=== PATIENT | male | born 2000 | race Caucasian/White ===

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

== ENCOUNTER 2019-05-22 07:12 | Day surgery (SDC) | payer OTHER, SELFPAY ==
[2019-05-05 08:48] VITALS: BMI 21.5
--- NOTE | 2019-05-05 08:48 | HP_ITS ---
Intake Vital Signs 05/05/19 Body Mass Index (BMI) 21.5 05/05/19 Height 5 ft 11 in 05/05/19 Weight: 168 lb 05/05/19 Body Mass Index (BMI) 23.4 05/05/19 Blood Pressure 119/70 05/05/19 Blood Pressure Location Rt brachial 05/05/19 Blood Pressure Position Sitting 05/05/19 Respiratory Rate 16 05/05/19 Pulse Rate 62 05/05/19 Pulse Source Monitor 05/05/19 Temperature 98.3 F 05/05/19 Temperature Source Oral 05/05/19 Pulse Ox 100 05/05/19 Oxygen Delivery Method room air 05/02/19 Body Mass Index (BMI) 21.5 Intake Visit Reasons: Rectal Bleeding Chief Complaint: Body aches, nausea, diarrhea [employer] Required: No Is patient in pain?: No Allergies No Known Allergies Allergy (Verified 05/05/19 08:45) [facility] Medical History Abdominal pain (Acute) Blood in stool (Acute) Fatigue (Acute) Pharyngitis (Acute) Cellulitis of left middle finger (Acute) Abrasion of left middle finger (Acute) Gastroenteritis (Acute) Bronchitis (Acute) Sinusitis (Acute) Impetigo (Acute) Fever (Acute) Confusion (Acute) Headache (Acute) Surgical History Hx of knee surgery (Acute) History of placement of ear tubes (Acute) Family History Grandfather Prostate cancer Mother Hypertension Social History (Updated 05/05/19 @ 09:12 by Jaime Perkins MD) Smoking Status: Never smoker second hand exposure: No alcohol intake: never substance use type: does not use caffeine: Yes what type of physical activity do you participate in: none frequency: does not exercise seatbelt use: always HPI HPI HPI: GUIDO EDUARDO, is a 18 M who presents to the office today for HPI HPI Surgical H&P: Yes HPI: GUIDO EDUARDO, is a 18 M who presents to the office today for Rectal bleeding. Patient has been having painless rectal bleeding since August of this year. Initially saw his primary care doctor who started him on some MiraLAX to soften his stools this however did not change the episodes of rectal bleeding. He says he has rectal bleeding every day sometimes on the stool sometimes when he wipes but is always painless. He never Has discomfort with his bowel movements. This past month he did Have an episode of some abdominal pain to the right side of his umbilicus during a bowel movement that went away once the bowel movement was completed.He has no family history of colon cancer.He is not noticing any diarrhea. ROS General General: Yes weight change and fatigue; no appetite, colon cancer, breast cancer or weakness HEENT HEENT: No difficulty swallowing, eye injury, eye surgery, swollen glands or hoarseness Endo Endocrine: No thyroid disease, diabetes mellitus, thyroid cancer, Hair loss, heat intolerance or cold intolerance Skin Skin: No rash or changing moles Musc Musculoskeletal: No back problems, arthritis, rheumatoid arthritis, gout or joint pain Cardio Cardiovascular: No murmur, pacemaker, heart disease, atrial fibrillation, high blood pressure, heart attack, heart stent, palpitations, shortness of breat with exertion or chest pain Psych Psychiatric: No depression, anxiety or hearing voices Resp Respiratory: No shortness of breath, No sleep apnea, No cough, No COPD, No asthma, No emphysema, No wheezing Gastro Gastrointestinal: No abdominal pain, No nausea or vomiting, No diarrhea, No constipation, Yes blood in stool, No acid reflux, No hemorrhoids, No ulcers, No gallbladder problem, No black,tarry stools [place] Hematologic: No blood thinners, No blood disorders, No bleeding, No anemia, No blood clots Neuro Neurologic: No system reviewed and no additional complaints, except as docu, No as per HPI, No abnormal walking, No abnormal hearing, No abnormal movements, No abnormal speech, No behavioral changes, No burning sensations, No confusion, No seizure-like activity, No unsteadiness, No dizziness, No localized weakness, No frequent falls, No headache(s), No lack of coordination, No loss of vision, No memory loss, No numbness, No other visual disturbances, No radiating pain, No restless legs, No sensory deficit, No fainting, No tingling, No tremor(s), No weakness, No other Exam Const General: no acute distress, well developed, well hydrated Orientation: oriented to person, oriented to place, oriented to time [facility] Head: normocephalic, atraumatic Ears: external ears normal Mouth: moist mucous membranes Eyes Sclera: sclerae normal Pupils: normal by confrontation Neck Neck: no lymphadenopathy noted Neck mass: No Thyroid: thyroid normal, symmetrical Chest Chest palpation & inspection: normal inspection of the chest Resp Effort & Inspection: normal respiratory effort Auscultation: clear to auscultation bilaterally Percussion: percussion normal Cardio Rate: regular rate Rhythm: regular rhythm Heart Sounds: no murmurs GI Palpation: soft, no hepatosplenomegaly, no masses, nontender Rectal Exam: other Other: Rectal exam deferred. Extrem General: normal to inspection, no clubbing, cyanosis or edema Assessment & Plan Problems 1. Rectal hemorrhage K62.5 Plan I have discussed the above with the patient. I have offered the patient colonoscopy for evaluation. I have explained the risks/benefits of the procedure and described the procedure. I have discussed the risks with the patient, including but not limited to: infection, bleeding, perforation of the GI tract requiring emergency surgery, inability to complete the procedure, injury to any internal organs, complications of anesthesia, etc. - the patient understands and agrees to proceed. I have answered all the patient's questions to the patient's satisfaction and the patient has no further questions. The patient has been given instructions for the colon cleansing preparation. Orders Orders: Colonoscopy Today Coding Level of Care Code Off vis,new,level 3 Diagnoses Rectal hemorrhage K62.5 05/05/1912 <Electronically signed by Jaime beard MD> Date _ Jaime Perkins MD I have re-examined the patient. There are no clinical changes since date of exam.
[2019-05-22] VITALS (7 sets, daily range): BP systolic 100–115; BP diastolic 39–68; PULSE 55–78; RESP 14–18; TEMP 36.3–36.5; O2SAT 93–100; BMI 23.3
[2019-05-22] MEDS: Lactated Ringers 1,000 ML 100 ML IV (07:38)
--- NOTE | 2019-05-22 08:52 | OP.ENDO_ITS ---
05/22/2019 Courtney Kunz [place] [address] [place] [address] Re : Colonoscopy procedure for Mario Dasilva Dear Dr. Kunz This procedure was performed on Wednesday, May 22, 2019. My impressions and recommendations are as follows: Impressions : - Non-bleeding internal hemorrhoids. - The examination was otherwise normal. - The examined portion of the ileum was normal. - No specimens collected. Recommendations : - Discharge patient to home. - Resume previous diet. - Continue present medications. - Repeat colonoscopy at age 49 for screening purposes. - Return to primary care physician PRN. - If patient starts to have rectal bleeding again would treat him conservatively with Anusol HC suppositories. My findings are described in the full procedure note, which is enclosed. If I can be of further assistance, please feel free to contact me at Doctor phone number(s): , Fax: [phone], Work: . Sincerely, MD Jaime Arroyo MD 05/22/2019 8:51:41 AM This report has been signed electronically.
== END 2019-05-22 09:45 | disposition home or self-care (01) ==
LOC: EN 07:15 → AC 07:16
PROVIDERS: Family Provider Family Medicine; PCP Family Medicine; Referring Provider Family Medicine; Visit Provider Surgery
PROC: 0DJD8ZZ Inspection of Lower Intestinal Tract, Via Natural or Artificial Opening Endoscopic (ICD-10-PCS; CPT 45378; principal; 2019-05-22 08:10)
DX: K64.8 Other hemorrhoids (principal)
CPT/HCPCS: 45378; J7120

== ENCOUNTER → 2021-03-11 12:57 | Outpatient (CLI) | payer OTHER, SELFPAY ==
[2020-12-21 13:18] VITALS: BMI 23.3
[2021-03-11 13:13] LABS: Absolute Lymphocyte Count 2.04 X10^3/uL (0.83-4.51); Absolute Neutrophil Count 3.7 X10^3/uL (2.0-7.7); Basophil# 0.07 X10^3/uL; Basophil% 0.6 % (0-1); Eosinophils% 42.2 % (0-5); Hematocrit 46.7 % (40-54); Hemoglobin 15.7 g/dL (13.0-16.5); Lymphocyte # 2.04 X10^3/ul (0.83-4.51); Lymphocyte % 18.4 % (19-41); Mean Corp Hgb Conc 33.6 g/dL (32-36); Mean Corpuscular Hgb 28.4 pg (27.0-32.0); Mean Corpuscular Volume 84.4 fL (80-94); Mean Platelet Vol. 11.2 fl (6.2-12.0); Monocyte# 0.62 X10^3/uL; Monocyte% 5.6 % (0-10); NRBC Flagged by Analyzer 0 % (0-5); Neutrophil # 3.65 X10^3/uL (2.7-7.7); POSITIVE DIFFERENTIAL YES; POSITIVE MORPHOLOGY YES; Platelet Count 214 K/mm3 (150-450); RBC Distribution Width CV 12.6 % (11.6-14.6); RBC Distribution Width SD 38.5 fl (35.1-43.9); Red Blood Count 5.53 M/mm3 (4.6-6.2); White Blood Count 11.1 K/mm3 (4.4-11.0)
[2021-03-11 13:26] LABS: Anion Gap 4 (5-15); BUN 11 mg/dL (7-18); BUN/Creat Ratio 11.2 RATIO (10-20); Calcium,Total 9.1 mg/dL (8.5-10.1); Chloride 108 mmol/L (98-107); Creatinine, Serum 0.98 mg/dL (0.70-1.30); EST Glomerular Filtration Rate 102 mL/min (>60); Est Glom Filt Rate - Afr Amer 123 mL/min (>60); Glucose 70 mg/dL (74-106); Potassium 3.8 mmol/L (3.5-5.1); Sodium Level 140 mmol/L (136-145)
[2021-03-11 13:41] LABS: Differential Indicated SCAN CRITERIA MET; Eosinophil# 4.67 X10^3/uL
[2021-03-11 13:42] LABS: Differential Comment SCANNED
[2021-03-12 12:47] LABS: Pathologist Review Reviewed
== END ==
PROVIDERS: PCP Family Medicine; Referring Provider Family Medicine; Visit Provider Family Medicine
DX: K92.2 Gastrointestinal hemorrhage, unspecified (principal)
CPT/HCPCS: 36415; 80048; 85025

== ENCOUNTER 2021-03-12 07:38 | Day surgery (SDC) | payer OTHER, SELFPAY ==
[2021-03-11 13:29] VITALS: BMI 25.1
[2021-03-12] VITALS (9 sets, daily range): BP systolic 97–122; BP diastolic 55–64; PULSE 54–104; RESP 16; TEMP 35.8–36.5; O2SAT 94–100; BMI 25.0
--- NOTE | 2021-03-12 | EGD_PTH ---
PATIENT: GUIDO EDUARDO LOC: EN U#:[id number] AGE/SX: 20/M ROOM: RE03/12/[address]: Dr. Alexys Da Silva MD : 2000 BED: DIS: 03/12/2021 SPEC #: [id number] RECD: 03/12/21 13:16 STATUS: ESDRAS LES #: [id number] MARIA GUADALUPE: 03/12/21 00:[address]: Alexys Da Silva DEPT: SURGICAL PATHOLOGY RECD BY: Miguel Alcaraz ENTERED: 03/12/21 13:17 SP TYPE: EGD BIOPSY [facility] DR: Dr. Courtney Kunz MD Tissues: A - Duodenum, NOS B - Gastric mucous membrane C - Esophageal mucous membrane D - Esophageal mucous membrane E - Esophageal mucous membrane Procedures: Surgery Specimen Level IV HEADER OPERATION: EGD ([facility]) PRE-OP DIAGNOSIS: Abdominal pain TISSUE SUBMITTED: A - Duodenum biopsy, B - Antrum biopsy for histo and H. pylori, C - Distal esophagus biopsy, D - Mid esophagus biopsy, E - Proximal esophagus biopsy MICROSCOPIC DIAGNOSIS A. Duodenum biopsy: Fragments of duodenal mucosa with mild congestion, hemorrhage and Lisbet gland hyperplasia. B. Antrum biopsy: Mild gastritis. See microscopic description and comment. C. Distal esophagus, biopsy: Fragments of squamous mucosa with changes consistent with eosinophilic esophagitis. See comment. D. Mid esophagus, biopsy: Fragments of squamous mucosa with changes consistent with eosinophilic esophagitis. See comment. E. Proximal esophagus, biopsy: Fragments of squamous mucosa with changes consistent with eosinophilic esophagitis. See comment. SJ:rg 03/13/2021 COMMENT B. The results of immunohistochemistry for Helicobacter pylori will be reported separately ([id number]). C-E. Increased number of eosinophils (about 20 per high power field) are noted consistent with eosinophilic esophagitis. MICROSCOPIC DESCRIPTION Slides are reviewed. B. The specimen shows fragments of gastric mucosa with chronic inflammatory cell infiltrates in the lamina propria consisting of lymphocytes and plasma cells, consistent with mild chronic gastritis. GROSS DESCRIPTION A - Received in fixative is one container labeled with the patient's name and designated duodenum biopsy. The specimen consists of multiple irregular fragments of light landeros soft tissue that in aggregate measure 1.4 x 0.5 x 0.1 cm. The specimen is totally submitted in one cassette. B - Received in fixative is one container labeled with the patient's name and designated antrum biopsy. The specimen consists of multiple irregular fragments of light landeros soft tissue that in aggregate measure 1 x 0.5 x 0.1 cm. The specimen is totally submitted in one cassette. C - Received in fixative is one container labeled with the patient's name and designated distal esophagus biopsy. The specimen consists of multiple irregular fragments of light landeros soft tissue that in aggregate measure 0.7 x 0.3 x 0.1 cm. The specimen is totally submitted in one cassette. D - Received in fixative is one container labeled with the patient's name and designated mid esophagus biopsy. The specimen consists of multiple irregular fragments of light landeros soft tissue that in aggregate measure 1 x 0.5 x 0.1 cm. The specimen is totally submitted in one cassette. E - Received in fixative is one container labeled with the patient's name and designated proximal esophagus biopsy. The specimen consists of multiple irregular fragments of light landeros soft tissue that in aggregate measure 1 x 0.2 x 0.1 cm. The specimen is totally submitted in one cassette. / SJ:amanda 03/12/21 TC:3 CPT: 35855 x5
--- NOTE | 2021-03-12 07:39 | US_ITS ---
STUDY: ABDOMINAL ULTRASOUND - RIGHT UPPER QUADRANT REASON FOR VISIT: Male, 20 years old 4 day history of epigastric pain. TECHNIQUE: Ultrasound evaluation of the right upper quadrant was performed with real-time and static robertson-scale imaging. TECHNICAL QUALITY: Adequate. COMPARISON: None. FINDINGS: Liver: The liver measures 14.9 cm. There is normal echogenicity of the liver. The bile ducts are within normal limits. There is hepatic color flow. The direction of portal flow is hepatopetal. There is no demonstrated mass lesion. Gallbladder: Normal distended gallbladder. The gallbladder wall measures 2.4 mm. There is a negative sonographic Salcido''s sign. There is no pericholecystic fluid. There are no gallstones. There is evidence of a 4 mm x 4 mm polyp adherent to the gallbladder wall. Common Bile Duct (C.B.D.): The common bile duct measures 2.2 mm. Pancreas: Normal size of the head, body and tail of the pancreas. There is normal echogenicity of the pancreas. There is no demonstrated pancreatic mass or cyst. Right Kidney: Normal size of the right kidney. The right kidney measures 10.1 cm x 4.9 cm x 5 cm. Normal renal cortex. The right cortex measures 1.4 cm. There is no demonstrated renal mass or cyst. There is no right hydronephrosis. US/Gallbladder IMPRESSION: 4 mm x 4 mm gallbladder polyp. Electronically Signed: Daniel Velazquez MD at 8:59 EDT , Service support ,
--- NOTE | 2021-03-12 11:27 | HP.PCM_ITS ---
History and Physical Date of Admission: 03/12/21 Intake Visit Reasons: Upper GI Bleed Chief Complaint: epigastric pain/ black stools Carbon Brush Maker Required: No Is patient in pain?: Yes (epigastric area into mid abd and back ) Allergies No Known Allergies Allergy (Verified 03/11/21 14:49) Medications omeprazole 40 mg capsule,delayed release 40 mg PO BID 7 Days #14 cap 03/11/21 [Rx Confirmed 03/11/21] [facility] Medical History (Updated 03/11/21 @ 14:57 by Anita Vázquez) Abdominal pain Abrasion of left middle finger Anxiety Asthma Blood in stool Bronchitis Cellulitis of left middle finger Confusion Depression Fatigue Fever Gastric reflux Gastroenteritis Headache Hemorrhoid Impetigo Injury of head and neck Loss of consciousness Non-smoker Pharyngitis Sinusitis Wears contact lenses Surgical History History of colonoscopy (~2018) History of placement of ear tubes Hx of knee surgery Family History Grandfather Prostate cancer Mother Hypertension Social History Smoking Status: Never smoker second hand exposure: No alcohol intake: never substance use type: does not use caffeine: Yes what type of physical activity do you participate in: none frequency: does not exercise seatbelt use: always HPI HPI HPI: GUIDO EDUARDO, is a 20 M who presents to the office today for abdominal pain. Patient stated his abdominal pain started Wednesday evening. He noted Wednesday morning the pain continued. He noted the pain was intermittent all day. He has had lack of appetite. He noted Wednesday morning he had a melanotic stool. He denies fever, chills, vomiting. He notes nausea, bloating and early satiety. He tried to take pepto and Imodium on Wednesday without any relief. he then tried a laxative without any relief. He has noted diarrhea since his symptoms. He notes abdominal pain mostly epigastric, however he also notes the pain in the right upper quadrant. Patient states the pain does wrap into the mid back especially on the right side. He tried to also take ibuprofen and Tylenol without any relief in pain. He denies urinary symptoms. He denies trying antacids. He had a colonoscopy by Dr. Perkins in 2019 for rectal bleeding. He was noted to have internal hemorrhoids otherwise unremarkable. He denies previous abdominal surgeries. He was evaluated by his PCP who thought the patient had an upper GI bleed. Patient was also evaluated for poison jarek of both arms. He had lab work which was remarkable for a WBC at 11.1 and eosinophils at 42.2%. Hgb was 15.7. Plt 214. Patient states he had COVID back in December. He notes difficulty with taste and smell still. This never returned since having COVID. He was not hospitalized for COVID. ROS General General: Yes weight change and fatigue; No appetite, colon cancer, breast cancer or weakness HEENT HEENT: No difficulty swallowing, eye injury, eye surgery, swollen glands or hoarseness Endo Endocrine: No thyroid disease, diabetes mellitus, thyroid cancer, Hair loss, heat intolerance or cold intolerance Musc Musculoskeletal: No back problems, arthritis, rheumatoid arthritis, gout or joint pain Cardio Cardiovascular: No murmur, pacemaker, heart disease, atrial fibrillation, high blood pressure, heart attack, heart stent, palpitations, shortness of breat with exertion or chest pain Psych Psychiatric: No depression, anxiety or hearing voices Resp Respiratory: No shortness of breath, No sleep apnea, No cough, No COPD, No asth ma, No emphysema and No wheezing Gastro Gastrointestinal: Yes abdominal pain, No nausea or vomiting, Yes diarrhea, No constipation, Yes blood in stool, No acid reflux, No hemorrhoids, No ulcers, No gallbladder problem and Yes black,tarry stools [place] Hematologic: No blood thinners, No blood disorders, No bleeding, No anemia and No blood clots Neuro Neurologic: No weakness Exam Const General: cooperative, healthy appearing and no acute distress [facility] Head: normal to inspection Eyes General: appearance normal, both eyes and all related structures Neck Neck: normal visual inspection Neck mass: No Resp Effort & Inspection: normal respiratory effort Auscultation: clear to auscultation bilaterally Cardio Rate: regular rate Rhythm: regular rhythm GI Palpation: soft, guarding and tender in the epigastrum and in the RUQ Auscultation: normal bowel sounds Musc Thoracic/Lumbar Spine: thoracic and lumbar spine normal to inspection Skin General: no rashes or lesions noted Neuro General: no focal motor deficits and CN's II-XI intact bilaterally Extrem General: normal to inspection Psych Appearance: grossly normal Affect: normal affect Assessment and Plan Assessment and Plan (1) Abdominal pain: Status: Acute Orders: Orders: Gallbladder Today ENTERIC PATHOGEN PANEL STOOL Today Stool Occult Blood iFOB Today Stool Lactoferrin/WBC Today Ova and Parasites 8623 Today CDIFF (PCR) Today Plan - Valery CRUZ PA-C: Dr. Da Silva also evaluated this patient. Dr. Da Silva will plan to perform an upper scope with biopsies. Procedure details, risks and benefits have been explained. Recommend a gallbladder ultrasound tomorrow morning prior to upper scope. Obtain stool cultures. Start omeprazole 40 mg BID. Do not take omeprazole tomorrow morning. Patient's eosinophils are highly elevated for unknown reasoning at this time. Will biopsy for eosinophilic esophagitis. Patient will need COVID tested. Patient and his mother have had the opportunity to ask and have questions answered. Patient verbally understands and agrees with the plan. Plan Details Other Medications: New: omeprazole 40 mg PO BID 7 days 14 caps 0RF Other Orders: Orders: EGD Today Coding Level of Care Code 74986 Diagnoses Abdominal pain R10.9 03/11/21 1609<Electronically signed by Valery CRUZ PA-C>Date Valery CRUZ PA-C I have been part of this evaluation. I do recommend pursuing a esophagogastroduodenoscopy with possible biopsy. Also pursuing results of her gallbladder ultrasound. The etiology to his eosinophilia is undetermined at this time. Alexys Da Silva M.D., F.A.C.S.
[2021-03-12] MEDS: Lactated Ringers 1,000 ML 100 ML IV (11:51)
--- NOTE | 2021-03-12 12:00 | IMM_PTH ---
PATIENT: GUIDO EDUARDO LOC: EN U#:[id number] AGE/SX: 20/M ROOM: RE03/12/[address]: Dr. Alexys Da Silva MD : 2000 BED: DIS: 03/12/2021 SPEC #: [id number] RECD: 03/12/21 13:19 STATUS: ESDRAS RERanjeet #: [id number] MARIA GUADALUPE: 03/12/21 12:[address]: Alexys Da Silva DEPT: IMMUNOHISTOCHEMISTRY RECD BY: Maira Sousa ENTERED: 03/12/21 13:19 SP TYPE: IMMUNO OTHR DR: Dr. Courtney Kunz MD Tissues: B - Stomach, NOS Procedures: H Pylori (initial) PHYSICIAN & [place] [id number] SPECIMEN INFORMATION: Tissue Source: B ? Antrum biopsy Clinical Info: Abdominal pain Specimen Number: [id number] CPT code: 79144 METHODOLOGY: Deparaffinized sections of prefer/formalin-fixed tissue or PAP/DQ stained slides are incubated with monoclonal/polyclonal antibodies/oligonucleotide probes. Localization is made via biotin free immunoperoxidase method. Appropriate controls are performed and reacted as expected. Results on target cell population are indicated in the following table: RESULTS: ANTIBODY / CLONE RESULT Block B H Pylori (polyclonal) negative These tests were developed and their performance characteristics determined by [facility]. They may not have been cleared or approved by the U.S. Food and Drug Administration. The FDA has determined that such clearance or approval is not necessary. INTERPRETATION: B. Antrum biopsy: Negative for Helicobacter pylori organisms. SJ:amanda 03/14/2021
--- NOTE | 2021-03-12 12:25 | OP.EGD_ITS ---
Patient Name: Mario Dasilva Procedure Date: 03/12/2021 11:46 AM Date of : 2000 Age: 20 Procedure: Upper GI endoscopy Indications: Epigastric abdominal pain Providers: Alexys Da Silva MD Medicines: See the Anesthesia note for documentation of the administered medications Complications: No immediate complications. Procedure: Pre-Anesthesia Assessment: - Prior to the procedure, a History and Physical was performed, and patient medications and allergies were reviewed. The patient's tolerance of previous anesthesia was also reviewed. The risks and benefits of the procedure and the sedation options and risks were discussed with the patient. All questions were answered, and informed consent was obtained. Prior Anticoagulants: The patient has taken no previous anticoagulant or antiplatelet agents. ASA Grade Assessment: II - A patient with mild systemic disease. After reviewing the risks and benefits, the patient was deemed in satisfactory condition to undergo the procedure. After obtaining informed consent, the endoscope was passed under direct vision. Throughout the procedure, the patient's blood pressure, pulse, and oxygen saturations were monitored continuously. The gastroscope was introduced through the mouth, and advanced to the second part of duodenum. The upper GI endoscopy was accomplished without difficulty. The patient tolerated the procedure well. Scope In: 12:03:26 PM Scope Out: 12:14:58 PM Total Procedure Duration Time 0 hours 11 minutes 32 seconds Findings: The Z-line was variable and was found 40 cm from the incisors. Mucosal changes including circumferential folds were found in the entire esophagus. Biopsies were taken with a cold forceps for histology. Diffuse mildly erythematous mucosa without bleeding was found in the gastric antrum. Biopsies were taken with a cold forceps for histology. Diffuse moderately erythematous mucosa without active bleeding and with no stigmata of bleeding was found in the duodenal bulb. Biopsies were taken with a cold forceps for histology. Impression: - Z-line variable, 40 cm from the incisors. - Esophageal mucosal changes suggestive of eosinophilic esophagitis. Biopsied distal, mid and proximally. - Erythematous mucosa in the antrum. Biopsied. - Erythematous duodenopathy. Biopsied. Recommendation: - Discharge patient to home. - Resume previous diet. - Continue present medications. - Use Prilosec (omeprazole) 40 mg PO daily. Use Flonase 1 squirt to be swallowed twice daily Procedure Code(s): --- Professional --- 67818, Esophagogastroduodenoscopy, flexible, transoral; with biopsy, single or multiple Diagnosis Code(s): --- Professional --- K22.8, Other specified diseases of esophagus K31.89, Other diseases of stomach and duodenum R10.13, Epigastric pain CPT copyright 2017 [place]. All rights reserved. The codes documented in this report are preliminary and upon clinical nurse educator review may be revised to meet current compliance requirements. Alexys Da Silva MD 03/12/2021 12:24:44 PM This report has been signed electronically. Number of Addenda: 0 Note Initiated On: 03/12/2021 11:46 AM
--- NOTE | 2021-03-12 12:26 | OP.CCLET_ITS ---
03/12/2021 Courtney Kunz [place] [id number] [place] [address] Re : Upper GI endoscopy procedure for Mariocassidy Dasilva Dear Dr. Kunz This procedure was performed on Wednesday, March 12, 2021. My impressions and recommendations are as follows: Impressions : - Z-line variable, 40 cm from the incisors. - Esophageal mucosal changes suggestive of eosinophilic esophagitis. Biopsied distal, mid and proximally. - Erythematous mucosa in the antrum. Biopsied. - Erythematous duodenopathy. Biopsied. Recommendations : - Discharge patient to home. - Resume previous diet. - Continue present medications. - Use Prilosec (omeprazole) 40 mg PO daily. Use Flonase 1 squirt to be swallowed twice daily My findings are described in the full procedure note, which is enclosed. If I can be of further assistance, please feel free to contact me at Doctor phone number(s): Work: . Sincerely, Alexys Da Silva MD 03/12/2021 12:24:44 PM This report has been signed electronically.
== END 2021-03-12 13:23 | disposition home or self-care (01) ==
LOC: EN 09:41 → AC 11:24
PROVIDERS: PCP Family Medicine; Referring Provider Family Medicine; Visit Provider Surgery
PROC: 0DJ08ZZ Inspection of Upper Intestinal Tract, Via Natural or Artificial Opening Endoscopic (ICD-10-PCS; CPT 43235; principal; 2021-03-12 11:55)
DX: K29.70 Gastritis, unspecified, without bleeding (principal); K21.9 Gastro-esophageal reflux disease without esophagitis
CPT/HCPCS: 43239; 76705; 82274; 83630; 87177; 87209; 87493; 87506; 88305; 88342; J7120; J2405

== ENCOUNTER 2022-04-24 18:04 | Emergency (ER) | payer BC, SELFPAY ==
[2022-04-24 18:05] VITALS: BP 110/86; PULSE 92; RESP 18; TEMP 37.2; O2SAT 99; BMI 21.6
--- NOTE | 2022-04-24 19:20 | EKG12_ITS ---
Test Reason : GEN ILLNESS Blood Pressure : / mmHG Vent. Rate : 080 BPM Atrial Rate : 080 BPM P-R Int : 144 ms QRS Dur : 098 ms QT Int : 350 ms P-R-T Axes : 055 083 059 degrees QTc Int : 403 ms Normal sinus rhythm Normal ECG Confirmed by QUINTIN MALONE, GERONIMO ([id number]), story editor HENRY TANG ([id number]) on 04/28/2022 9:00:25 AM Referred By: KAYLEEN Confirmed By:MORGAN RIBEIRO MD
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
[2022-04-24 19:41] LABS: Absolute Lymphocyte Count 2.72 X10^3/uL (0.83-4.51); Absolute Neutrophil Count 5.3 X10^3/uL (2.0-7.7); Basophil# 0.02 X10^3/uL; Basophil% 0.2 % (0-1); Eosinophil# 0.03 X10^3/uL; Eosinophils% 0.3 % (0-5); Hematocrit 43.3 % (40-54); Hemoglobin 15.1 g/dL (13.0-16.5); Lymphocyte # 2.72 X10^3/ul (0.83-4.51); Lymphocyte % 30.8 % (19-41); Mean Corp Hgb Conc 34.9 g/dL (32-36); Mean Corpuscular Hgb 28.5 pg (27.0-32.0); Mean Corpuscular Volume 81.9 fL (80-94); Mean Platelet Vol. 11.4 fl (6.2-12.0); Monocyte# 0.71 X10^3/uL; NRBC Flagged by Analyzer 0 % (0-5); Neutrophil # 5.31 X10^3/uL (2.7-7.7); Neutrophil % 60.4 % (47-70); Platelet Count 225 K/mm3 (150-450); RBC Distribution Width CV 12.1 % (11.6-14.6); RBC Distribution Width SD 36.2 fl (35.1-43.9); Red Blood Count 5.29 M/mm3 (4.6-6.2); White Blood Count 8.8 K/mm3 (4.4-11.0)
--- NOTE | 2022-04-24 19:47 | CT_ITS ---
EXAM: CT ANGIOGRAPHY CHEST WITH INTRAVENOUS CONTRAST CLINICAL INDICATION: Chest pain. TECHNIQUE: Helically acquired angiography images were obtained of the chest with intravenous contrast. This CT exam was performed using one or more of the following dose reduction techniques: automated exposure control, adjustment of the mA and/or kV according to patient size, and/or use of iterative reconstruction technique. This report was created using [employer] report generation technology. MIP reconstructed images were created and reviewed. CONTRAST: IV 100mL Isovue-370 RADIATION DOSE: CTDIvol = 9.85 mGy, DLP = 385.02 mGy-cm COMPARISON: None. FINDINGS: PULMONARY ARTERIES: Less than optimal contrast enhancement of the central pulmonary arteries. Suboptimal contrast enhancement of the peripheral pulmonary arteries. Normal in caliber. AORTA: Unremarkable. Normal in caliber. No evidence of dissection. GREAT VESSELS OF AORTIC ARCH: Unremarkable. Normal in caliber. No evidence of dissection. LUNGS AND PLEURAL SPACES: Unremarkable. No mass. No consolidation or edema. No pleural effusion or thickening. No pneumothorax. HEART: Unremarkable. Heart size is normal. No pericardial effusion. No signs of right heart strain, ratio of right ventricle to left ventricle measures less than 1. MEDIASTINUM: Unremarkable. No mediastinal or hilar adenopathy. Esophagus is unremarkable. No hiatal hernia. THYROID: Unremarkable. No thyroid lesions. BONES/JOINTS: Unremarkable. No suspicious lytic or blastic abnormality. CT/CTA Chest W/WO Contrast IMPRESSION: No CTA evidence of central pulmonary thromboemboli but peripheral pulmonary embolism cannot be evaluated due to suboptimal contrast enhancement of the peripheral pulmonary arteries. Otherwise negative CTA chest. Electronically Signed: Chuck Vargas MD at 20:12 EDT ,
[2022-04-24 20:01] LABS: Anion Gap 8 (5-15); BUN 18 mg/dL (7-18); BUN/Creat Ratio 19.2 RATIO (10-20); Calcium,Total 9.1 mg/dL (8.5-10.1); Chloride 107 mmol/L (98-107); Creatinine, Serum 0.94 mg/dL (0.70-1.30); EST Glomerular Filtration Rate 106 mL/min (>60); Est Glom Filt Rate - Afr Amer 129 mL/min (>60); Estimated Creatinine Clearance 122.58 ml/min; Glucose 89 mg/dL (74-106); Potassium 3.8 mmol/L (3.5-5.1); Sodium Level 141 mmol/L (136-145); Troponin-I HS 4 pg/mL (3.0-78.0)
[2022-04-24 21:32] VITALS: BP 109/66; PULSE 69; RESP 15; O2SAT 95
== END 2022-04-24 21:34 | disposition home or self-care (01) ==
PROVIDERS: Emergency Provider Emergency Medicine; PCP Family Medicine; Visit Provider Emergency Medicine
DX: R07.89 Other chest pain (principal); R06.02 Shortness of breath; J45.909 Unspecified asthma, uncomplicated; Z86.16 Personal history of COVID-19
CPT/HCPCS: 71275; 80048; 84484; 85025; 93005; 99283; Q9967; A4216